=== PATIENT | male | born 1965 | race Caucasian/White ===

== ENCOUNTER 2018-07-25 17:14 | Emergency (ER) | payer OTHER ==
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
[2018-07-25] MEDS ORDERED: traMADol TAB* 50 MG PO ONE ×2 (19:38→19:54)
[2018-07-25 20:27] VITALS: BP 161/74
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
== END 2018-07-25 20:26 | disposition home or self-care (01) ==
LOC: ED 17:14
DX: S52.121A Displaced fracture of head of right radius, initial encounter for closed fracture (principal); S69.91XA Unspecified injury of right wrist, hand and finger(s), initial encounter; V18.4XXA Pedal cycle driver injured in noncollision transport accident in traffic accident, initial encounter; Y93.55 Activity, bike riding; Y92.9 Unspecified place or not applicable; Z88.3 Allergy status to other anti-infective agents
CPT/HCPCS: 99283; A9270-GY